=== PATIENT | male | born 1950 | race Asian ===

== ENCOUNTER 2019-12-20 16:54 | Inpatient (IN) | payer BC ==
--- NOTE | 2019-12-20 17:31 | CT ---
Exam: Head CT without contrast HISTORY: Left-sided weakness, improved. COMPARISON: none FINDINGS: Hemorrhage: No intraparenchymal hemorrhage or extra-axial hematoma. Brain parenchyma: Cortical soler-white matter differentiation is preserved. No mass effect or midline shift. Basilar cisterns are patent. Ventricular system: Ventricles and sulci are patent and symmetric. Calvarium: Intact. Sinuses and mastoid air cells: Adequate aeration. IMPRESSION: No acute intracranial process.
[2019-12-20] MEDS ORDERED: Aspirin Chewable 81 MG TAB ONE (17:52)
[2019-12-20 18:13] LABS: #Eosinphils 0.1 thou/uL (0.0-0.7); #Lymphocytes 1.6 thou/uL (1.20-3.40); #Monocytes 0.6 thou/uL (0.11-0.59); #Neutrophils 4.4 thou/uL (1.40-6.50); %Basophils 0.3 % (0.0-1.0); %Eosinophils 1.7 % (0.0-10.0); %Lymphocytes 23.6 % (21.0-51.0); %Monocytes 8.2 % (0.0-10.0); %Neutrophils 66.2 % (42.0-75.0); Hemoglobin 14.5 g/dL (14.0-18.0); Mean Corpuscular Hemoglobin 30.6 pg (27.0-31.0); Mean Corpuscular Volume 95.6 fL (78.0-98.0); Mean Platelet Volume 7.7 fL (7.4-10.4); Platelet Count 203 thou/uL (130-400); RBC Distribution Width 11.8 % (11.5-14.5); Red Blood Cell (RBC) Count 4.75 mill/uL (4.70-6.10); White Blood Cell (WBC) Count 6.7 thou/uL (4.8-10.8)
[2019-12-20 18:26] LABS: Bilirubin Negative (Negative); Blood, Urine Negative (Negative); Clarity Clear (Clear); Glucose, Urine (Dipstick) Normal (Negative); Leukocyte Negative Leu/uL (Negative); Nitrite Negative (Negative); Protein, Urine (Dipstick) 20 mg/dL (Neg-Trace); Urobilinogen Normal mg/dL (Less than 2)
[2019-12-20 19:10] LABS: ALT (SGPT) 23 U/L (8-55); AST (SGOT) 20 U/L (5-34); Albumin 4.1 g/dL (3.4-4.8); Alkaline Phosphatase 81 U/L (40-110); Anion Gap 12 mmol/L (10-20); BUN (Urea Nitrogen) 18 mg/dL (8.4-25.7); Bilirubin, Total 0.5 mg/dL (0.2-1.2); CK (CPK) 142 U/L (30-200); Calc. Creatinine Clearance 0 mL/min (70-130); Carbon Dioxide 25 mmol/L (23-31); Chloride 107 mmol/L (98-107); Estimated GFR-MDRD 55; Globulin 2.7 g/dL (2.4-3.5); Glucose 94 mg/dL (80-115); Protein, Total 6.8 g/dL (5.8-8.1); Sodium 140 mmol/L (136-145)
[2019-12-20 23:06] VITALS: BMI 27.6
--- NOTE | 2019-12-21 00:05 | HP ---
TIME OF ASSESSMENT: 2100 hours. CHIEF COMPLAINT: Left upper and lower extremity weakness/numbness. HISTORY OF PRESENT ILLNESS: Mr. Contreras is a 69-year-old gentleman with a previous history of CVA in 2015, confirmed on MRI, who presents with sudden onset of left hand numbness and weakness that progressed to involve his entire left arm as well as his left leg. The patient states this may have started at approximately 2 or 3:00 p.m. He states it is almost fully resolved at this present time. On arrival to the emergency department, he was noted to have some slight weakness in the left upper extremity and abnormal [id number] movement. The patient reports that immediately prior to these symptoms, he felt a "shaking in my brain." When asked if he felt dizzy or lightheaded, the patient stated "maybe." Denies any ataxic gait, but states it was difficult to walk due to the weakness in his leg. Denies any speech changes or vision disturbances. Did not experience any headache. All other review of systems are negative. ED COURSE: In the emergency department, he underwent an EKG that showed normal sinus rhythm with a heart rate of 63. He was given 325 mg of aspirin and underwent a CT of the head that was unremarkable. He had laboratory studies done, which were unremarkable as well. His full blood count was normal. Potassium is 4.1, BUN 18, creatinine 1.30, GFR 55. LFTs unremarkable. Troponin negative. CK 142. The patient also underwent a urinalysis, which was negative. PAST MEDICAL HISTORY: 1. Hyperlipidemia. 2. Hypothyroidism. 3. History of CVA. 4. Kidney stones. PAST SURGICAL HISTORY: 1. Partial lung removal. 2. Kidney stone removal. 3. Cholecystectomy. SOCIAL HISTORY: The patient states he lives with his family. Denies any tobacco use, alcohol consumption, or illicit drug use. ALLERGIES: NO KNOWN DRUG ALLERGIES. CURRENT MEDICATIONS: 1. Amlodipine. 2. Synthroid. 3. Aspirin. 4. Lipitor. PHYSICAL EXAMINATION: GENERAL: The patient appears well developed, well nourished, is in no acute distress. VITAL SIGNS: Heart rate 59, blood pressure 126/70, respiratory rate 16, O2 sat 98% on room air, temp 98. HEENT: Normocephalic and atraumatic. Pupils are equal, round, reactive to light. Sclerae icterus. Extraocular movements intact. Oropharynx is clear. No tongue deviation. NECK: Supple without lymphadenopathy. Full range of motion. LUNGS: Clear to auscultation bilaterally without any wheezes, rales, or rhonchi. CARDIAC: Regular rate and rhythm. ABDOMEN: Soft, nontender, nondistended with bowel sounds present. No guarding or rigidity. No renal angle tenderness. EXTREMITIES: Power 5/5 in both upper and lower extremities. Sensation intact with no numbness or reduced sensation involving the left side. Peripheral pulses present and equal bilaterally. NEUROLOGIC: Alert and oriented x3. Speech appears to be normal. The patient does have heavy accent, but no slurred speech. Facial movements normal. Facial sensation intact. Extraocular movements intact. Peripheral vision intact. Gait is normal. No cerebellar signs. INVESTIGATIONS: As mentioned above. IMPRESSION AND PLAN: Mr. Contreras is a 69-year-old gentleman who is being admitted for management of the followin. Transient ischemic attack workup. The patient with a history of cerebrovascular accident in the past, confirmed on MRI. CT brain negative. We will obtain a CT angiogram of the head and neck, echo, and MRI of the brain. The patient normally on 81 mg of aspirin at home. We will increase this to 325 mg p.o. daily. He is on 40 mg of atorvastatin. Lipid panel. We will recheck with morning labs. Consider increasing to 80 mg. Consultation placed to Neurology. Further recommendations as per Dr. James. 2. Hypertension. Monitor blood pressure. Resume home medications once verified. 3. Hypothyroidism. Check thyroid stimulating hormone. Resume home medications once verified. 4. Gastrointestinal prophylaxis with famotidine. 5. Deep venous thrombosis prophylaxis. The patient is ambulatory at this present time. 6. Code status, full. 7. Surrogate decision maker is his , Lousia Carvalho. 8. Case discussed with attending who agrees with plan of care as described above. Job ID: [id number]
[2019-12-21 05:04] LABS: #Basophils 0.1 thou/uL (0.0-0.2); #Eosinphils 0.2 thou/uL (0.0-0.7); #Lymphocytes 2.7 thou/uL (1.20-3.40); #Monocytes 0.5 thou/uL (0.11-0.59); %Basophils 1.2 % (0.0-1.0); %Eosinophils 2.5 % (0.0-10.0); %Lymphocytes 41.8 % (21.0-51.0); %Monocytes 7.6 % (0.0-10.0); %Neutrophils 46.9 % (42.0-75.0); Hemoglobin 13.8 g/dL (14.0-18.0); Mean Corpuscular HGB CONC 32.9 g/dL (32.0-36.0); Mean Corpuscular Hemoglobin 31.3 pg (27.0-31.0); Mean Corpuscular Volume 95.2 fL (78.0-98.0); Mean Platelet Volume 7.9 fL (7.4-10.4); Platelet Count 218 thou/uL (130-400); RBC Distribution Width 11.8 % (11.5-14.5); White Blood Cell (WBC) Count 6.4 thou/uL (4.8-10.8)
[2019-12-21 05:17] LABS: Anion Gap 12 mmol/L (10-20); BUN (Urea Nitrogen) 16 mg/dL (8.4-25.7); Calc. Creatinine Clearance 69 mL/min (70-130); Calcium 8.6 mg/dL (7.8-10.44); Carbon Dioxide 24 mmol/L (23-31); Cardiac Risk 2.4 (Less than 4.5); Chloride 107 mmol/L (98-107); Cholesterol 100 mg/dl (< 200 Desired); Estimated GFR-MDRD 66; Glucose 87 mg/dL (80-115); HDL Cholesterol 41 mg/dL (>60 Neg Risk); LDL Cholesterol, Calculated 41 mg/dL; Potassium 3.7 mmol/L (3.5-5.1); Sodium 139 mmol/L (136-145); Triglycerides 92 mg/dL (Less than 150)
[2019-12-21] MEDS ORDERED: Levothyroxine Sodium 50 MCG TAB PO SCH (06:00)
[2019-12-21] MEDS ORDERED: Famotidine/PF 20 mg/2ml Vial SLOW IVP SCH (09:00)
[2019-12-21] MEDS ORDERED: Aspirin 325 mg Enteric Coated Tablet PO SCH (09:00)
[2019-12-21] MEDS ORDERED: Famotidine 20 MG TAB PO SCH (09:00)
--- NOTE | 2019-12-21 09:07 | MRI ---
MRI BRAIN WITHOUT CONTRAST: INDICATION: TIA. Assess for stroke versus TIA. Left-sided weakness. COMPARISON: Comparison is made to MRI of brain dated 08/11/2017. FINDINGS: Ventricles have normal size and position. On diffusion weighted sequence, there are 2 small foci of restricted diffusion seen in the right frontal lobe. The more posterior involves the precentral gyru s and would be consistent with left motor deficit. The more anterior is in the subcortical region of frontal lobe. These foci would be within the distribution of the right MCA. No other restricted di ffusion. FLAIR sequence shows mild ischemic change in the basal ganglia which appears chronic. Minimal ischem ic white matter change. No mass or edema. The intracranial internal carotid arteries and proximal cerebral arteries including the middle cerebr al artery show flow voids. Paranasal sinuses and mastoids appear clear. IMPRESSION: A few small foci of restricted diffusion of the right frontal lobe are seen consistent with tiny acut e infarcts. The more posterior foci do involve the precentral gyrus and could result in motor defici t. POS: [facility]
--- NOTE | 2019-12-21 09:26 | CT ---
CTA OF THE HEAD WITH AND WITHOUT IV CONTRAST AND 3-D REFORMATTED IMAGING. CTA OF THE NECK WITH IV CONTRAST AND 3-D REFORMATTED IMAGING. INDICATION: TIA with residual left hand weakness COMPARISON: CT of the brain dated December 20, 2019 and MR the brain dated December 21, 2019 FINDINGS: CTA OF THE HEAD WITH AND WITHOUT CONTRAST: NONCONTRAST CT OF BRAIN: Hemorrhage: None [place]/Infarction: Known small punctate cortically based infarcts involving the right frontal lobe, seen on the recent MR of the brain dated December 21, 2019, are not as well seen on the current CT examination. Midline Shift: None. Hydrocephalus: None. Skull and Extracranial Soft tissues: Normal. CTA OF THE BRAIN: Right ICA: Patent. Right MCA: Patent. Right CHARLEY: Patent. ACOM: Patent. Left ICA: Patent. Left MCA: Patent. Left CHARLEY: Patent. PCOMs: Patent. Vertebral arteries: The right vertebral artery is diminutive. The left vertebral artery is dominant. Basilar Artery: Patent. 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 Incidentals: No abnormal enhancement CTA OF THE NECK WITH CONTRAST: Right CCA: Patent. Right ICA: Patent. Right Subclavian: Patent. Right Vertebral Artery: Diminutive Left CCA: Patent. Left ICA: Patent. Left Subclavian: Patent. Left Vertebral Artery: Dominant Aerodigestive tract: Clear. Parotids/Submandibular/Thyroid glands: Normal. Lymph nodes: No pathologically enlarged lymph nodes. Lung Apices: Clear. Bones: No acute osseous abnormality. Incidentals: There is mild ectasia of the ascending aorta measuring 3.8 cm. There is mild aneurysmal dilatation of the aortic arch measuring 3.1 cm. There is mild ectasia of the descending thoracic aorta measuring 2.9 cm. IMPRESSION: 1. No hemodynamically significant stenosis, occlusion or aneurysmal formation. 2. 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 Mild aneurysmal dilatation of t he aortic arch.
--- NOTE | 2019-12-21 12:08 | PRG ---
DATE OF SERVICE: 12/21/2019 SUBJECTIVE: The patient is seen and examined at bedside. He is feeling good. He regained all his strength he lost yesterday and he does not have much complaints to offer. His appetite is fair. OBJECTIVE: VITAL SIGNS: Blood pressure is 128/77, pulse is , temperature is 97.8, respirations 16, and O2 saturation is 97% on room air. HEENT: His head is atraumatic and normocephalic. Eyes are PERRLA. Sclerae are nonicteric. Oral mucosa is moist. NECK: Supple. LUNGS: Clear. HEART: S1 and S2 normal. No S3. No S4. No any murmur. ABDOMEN: Soft and nontender. Bowel sounds are present. No organomegaly. EXTREMITIES: No clubbing, cyanosis or edema. NEUROLOGICAL: He is alert and oriented x4. There is no any motor or sensory deficits. LABORATORY DATA: Labs showed white count of 6.4, hemoglobin 13.8, hematocrit 41.9, and platelet count 218,000. Chemistry within normal limits. Triglycerides 92, cholesterol 100, LDL 41, and HDL is 41. Third generation TSH is 3.26. DIAGNOSTIC DATA: Brain MRI showed a few small foci of restricted diffusion of the right frontal lobe consistent with tiny acute infarct. CT of the [place] of [place] angio with contrast showed no hemodynamically significant stenosis, occlusion of aneurysmal formation, mild ectasia of the ascending aorta and descending thoracic aorta, and mild aneurysmal dilatation of the aortic arch. IMPRESSION: 1. Transient ischemic attack/cerebrovascular accident, resolved. 2. Hypertension. 3. Hypothyroidism. 4. 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 5. 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 PLAN: Continue aspirin 325 mg once a day. Cut back on atorvastatin to 20 mg at bedtime from 40. Echocardiogram is still pending and Neurology consultation is still pending. Job ID: [id number]
[2019-12-21] MEDS ORDERED: Iopamidol 370 76% 100 ML VIAL ONE (15:56)
[2019-12-21 16:15] VITALS: BP 128/72; TEMP 98.6
[2019-12-21] MEDS ORDERED: Atorvastatin Calcium 40 MG TAB PO SCH (21:00)
[2019-12-21] MEDS ORDERED: Atorvastatin Calcium 20 MG TAB PO SCH (21:00)
[2019-12-21] MEDS ORDERED: Amlodipine 5 MG TAB PO SCH (21:00)
--- NOTE | 2019-12-21 21:02 | CON ---
DATE OF CONSULTATION: 12/21/2019 CONSULTING PHYSICIAN: Hospitalist Service. IMPRESSION: 1. Recurrent stroke in the right anterior parietal region without visible etiology. 2. Aspirin failure. PLAN: 1. Add Plavix 75 mg per day. 2. Refer to outpatient cardiology for EKG monitoring to rule out intermittent atrial fibrillation. 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 He was seen 4 years ago for a right frontal stroke that resulted in some transient left hemiparesis. He was started on aspirin and a statin. He has been very diligent about exercising regularly. He has some hypertension, which has been managed as well. He was sitting at his desk when he suddenly felt something unusual. He started developing left-sided weakness again. Fortunately, his symptoms have steadily improved. MRI confirmed a right frontal area of infarct that was new. His lipid ratio was 2.4. His CT angiogram did not show any evidence of stenosis. The remainder of his lab work was unremarkable. His EKG showed a normal sinus rhythm. His blood pressure is quite good. His echocardiogram is pending. PAST MEDICAL HISTORY: Hypertension, hypothyroidism, and prior stroke. ALLERGIES: NONE. SOCIAL HISTORY: No tobacco. FAMILY HISTORY: Noncontributory. REVIEW OF SYSTEMS: Ten-system review of systems is otherwise negative. MEDICATION LIST: Reviewed. PHYSICAL EXAMINATION: GENERAL: He is a healthy-appearing middle-aged man, in no acute distress. VITAL SIGNS: Have been stable. He is afebrile. HEENT: Pupils equal and reactive. Conjunctivae clear. Oropharynx clear. NECK: Supple. EXTREMITIES: No cyanosis or edema. NEUROLOGIC: He is alert and appropriate. His speech is fluent and clear. There is no facial asymmetry. There is no lateralized weakness or numbness. No abnormal movements are seen. Gait was not tested, but he reports that he walked without any difficulty this afternoon. SUMMARY: This is a 69-year-old [place] male with recurrent stroke given his lack of risk factors beyond hypertension, I would rule out intermittent atrial fibrillation. We can add Plavix for the time being. If atrial fibrillation is confirmed, he can be converted to an anticoagulant. Job ID: [id number]
--- NOTE | 2019-12-22 08:06 | DIS ---
DATE OF ADMISSION: 12/20/2019 DATE OF DISCHARGE: 12/21/2019 FINAL DIAGNOSES AT THE TIME OF DISCHARGE: 1. Acute cerebrovascular accident. 2. Hypertension. 3. Hypothyroidism. 4. 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 5. 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 6. History of cerebrovascular accident. CONSULTANTS: Dr. James, Neurology Service. IMAGES: Brain CT with no acute intracranial process. CT [place] [facility] [place] Angiogram with contrast. 1. No hemodynamically significant stenosis, occlusion, or aneurysmal formation. 2. 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 Echocardiogram showed LVEF estimated at 60% to 65% with grade 1 of diastolic dysfunction, mild concentric left ventricular hypertrophy. Mild mitral regurgitation, mild aortic regurgitation, mild tricuspid regurgitation, and mild pulmonic regurgitation, and review specialist was not able to rule out small PFO, and KATHARINE was recommended with agitated saline study. MRI of the brain showed few small foci of restricted diffusion of the right frontal lobe consistent with tiny acute infarct. 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 Apparently, he has a history of previous CVA in 2015, confirmed with MRI with the same distribution He denied any speech changes or vision disturbances. He did not experience any headache. In the emergency room, he underwent EKG, which showed normal sinus rhythm with heart rate of 63. He was given 325 mg of aspirin and underwent CT of the head, which was unremarkable. His blood count was normal. Potassium 4.1, BUN 18, creatinine 1.3, GFR 55. LFTs were unremarkable. Troponin was negative. CK of 142. UA was negative. The patient got admitted to the Stroke Unit, and the dose of aspirin was increased to 325 from his home regimen of 81. He was continued on atorvastatin 40 mg. Lipid panel was requested. The patient was seen by Dr. James for neurology evaluation. In the meantime, he underwent MRI of the brain, which showed several foci of restricted diffusion of the right frontal lobe, which was consistent with tiny acute infarct. Neurologist recommended Plavix along with baby aspirin 81 mg daily. Also, he recommended to follow up with review specialist for possible additional cardiac evaluation. In the meantime, his echocardiogram came back with finding of possible small PFO with mild concentric left ventricular hypertrophy and grade 1 diastolic dysfunction, normal LVEF at 60% to 65%. Scabbler, Dr. Cannon, who read this echo, recommended to do KATHARINE with agitated saline study. The patient is doing well. Blood pressure is 128/72, pulse is 68, temperature is 98.6, respiratory rate is 12, and O2 saturation 95% on room air. His physical examination is unremarkable. He is able to ambulate during the whole hospitalization. His was present with him. His full function came back. Mental function is normal. He is discharged home in good condition. FOLLOWUP: He will follow up with his primary care physician, Dr. Shan Thomson in few days. Also, he will follow up with Dr. Cannon. He will call his office to set up outpatient KATHARINE. MEDICATIONS: At the time of discharge; 1. Atorvastatin 20 mg q.h.s. This was decreased because his total cholesterol was low as 100. 2. We will continue clopidogrel 75 mg once a day. 3. Amlodipine 5 mg q.h.s. 4. Aspirin 81 mg once a day. 5. Levothyroxine, which is Synthroid 50 mcg once a day. DIET: He will stay on low-salt diet. ACTIVITIES: As tolerated, and also, we recommended him to have follow up on his CT of the chest findings, which showed an ectasia of the ascending and descending aorta and mild aneurysmal dilatation of the aortic arch. He understands all our recommendation, and he promises that he will follow up on that. Job ID: [id number]
[2019-12-22] MEDS ORDERED: Clopidogrel Bisulfate 75 MG TAB PO SCH (09:00)
== END 2019-12-21 17:53 | disposition home or self-care (01) | DRG 65 ==
LOC: ERS 16:54 → OBSVTOIN 21:00 → 2SE 21:00
PROVIDERS: ADMIT Emergency Medicine; ATTEND Emergency Medicine
PROC: B020ZZZ Computerized Tomography (CT Scan) of Brain (ICD-10-PCS; principal; 2019-12-20)
PROC: B030ZZZ Magnetic Resonance Imaging (MRI) of Brain (ICD-10-PCS; 2019-12-21)
DX: I63.50 Cerebral infarction due to unspecified occlusion or stenosis of unspecified cerebral artery (principal); G81.94 Hemiplegia, unspecified affecting left nondominant side; E78.5 Hyperlipidemia, unspecified; E03.9 Hypothyroidism, unspecified; R29.701 NIHSS score 1; I71.2 Thoracic aortic aneurysm, without rupture; R40.2412 Glasgow coma scale score 13-15, at arrival to emergency department; I48.91 Unspecified atrial fibrillation; Z87.442 Personal history of urinary calculi; Z90.49 Acquired absence of other specified parts of digestive tract; Z79.890 Hormone replacement therapy; Z79.82 Long term (current) use of aspirin; Z79.899 Other long term (current) drug therapy; I10 Essential (primary) hypertension
CPT/HCPCS: 36415; 70450; 70496; 70498; 70551; 80048; 80053; 80061; 81003; 82550; 84443; 84484; 85025; 93005; 93306; Q9967

== ENCOUNTER 2020-01-12 07:28 | Outpatient (CLI) | payer BC ==
[2020-01-12 09:56] LABS: #Eosinphils 0.1 thou/uL (0.0-0.7); #Lymphocytes 2.4 thou/uL (1.20-3.40); #Monocytes 0.4 thou/uL (0.11-0.59); %Basophils 0.2 % (0.0-1.0); %Eosinophils 2.4 % (0.0-10.0); %Lymphocytes 39.6 % (21.0-51.0); %Monocytes 7.1 % (0.0-10.0); %Neutrophils 50.7 % (42.0-75.0); Hemoglobin 14.5 g/dL (14.0-18.0); Mean Corpuscular HGB CONC 34.3 g/dL (32.0-36.0); Mean Corpuscular Hemoglobin 33.3 pg (27.0-31.0); Mean Corpuscular Volume 96.8 fL (78.0-98.0); Mean Platelet Volume 7.1 fL (7.4-10.4); Platelet Count 226 thou/uL (130-400); RBC Distribution Width 11.8 % (11.5-14.5); Red Blood Cell (RBC) Count 4.36 mill/uL (4.70-6.10)
[2020-01-12 10:02] LABS: INR-International Normal Ratio 0.9; PTT 37.1 SEC (22.9-36.1); Prothrombin Time 12.4 SEC (12.0-14.7)
[2020-01-12 10:19] LABS: Anion Gap 11 mmol/L (10-20); BUN (Urea Nitrogen) 21 mg/dL (8.4-25.7); Calc. Creatinine Clearance 0 mL/min (70-130); Calcium 9.5 mg/dL (7.8-10.44); Carbon Dioxide 28 mmol/L (23-31); Chloride 107 mmol/L (98-107); Estimated GFR-MDRD 56; Glucose 95 mg/dL (80-115); Potassium 4.8 mmol/L (3.5-5.1); Sodium 141 mmol/L (136-145)
== END 2020-01-12 07:29 | disposition home or self-care (01) ==
LOC: LABBT 07:28
PROVIDERS: ATTEND Internal Medicine Cardiovascular Disease
DX: Z01.812 Encounter for preprocedural laboratory examination (principal); T84.84XD Pain due to internal orthopedic prosthetic devices, implants and grafts, subsequent encounter
CPT/HCPCS: 80048; 85025; 85610; 85730

== ENCOUNTER 2020-01-15 10:16 | Day surgery (SDC) | payer BC ==
[2020-01-12 09:16] VITALS: BMI 27.3
[2020-01-15] MEDS ORDERED: PROPOFOL 20 ML ONE (15:02)
[2020-01-15] MEDS ORDERED: Lidocaine 1% PF 5 ML VIAL ONE (15:02)
--- NOTE | 2020-01-17 18:24 | ECHO ---
DATE OF SERVICE: 01/17/20 PREPROCEDURE DIAGNOSIS: Multiple TIAs. PROCEDURES PERFORMED: Transesophageal echo. The Anesthesiology department provided with sedation for the patient. Please see their notes for det ails. After adequate sedation was achieved, transesophageal probe was inserted into the mouth and into the esophagus. Multiplanar views were obtained. FINDINGS: Left ventricle is normal size, normal wall thickness. Systolic function appears to be normal. Estima yasmin EF at 55-60% with no regional wall motion abnormalities. Left atrium is mildly dilated with no masses or thrombus. Left atrial appendage is a small appendage with no mass or thrombus. Spontaneous echo contrast. Right atrium is normal sized. No mass or thrombus. The right ventricle is structurally normal with normal systolic function. The interatrial septum has patent foramen ovale. This is confirmed with color Doppler as well as agit ated saline study with back and forth flow, left to right and also right to left shunting. Aortic valve is structurally normal. There is three cusps. No stenosis. There is mild aortic insuffic iency. Mitral valve is structurally normal. There is mild MR. No stenosis. Tricuspid valve is structurally normal. There is mild TR. Pulmonary valve is structurally normal. There is mild to moderate PI. No stenosis. Thoracic aorta has grade II/ atherosclerotic disease. CONCLUSIONS: 1. Normal LV systolic function, EF at 55-60%. 2. Mild AI. 3. Mild MR. 4. Mild TR. 5. Mild to moderate PI. 6. Agitated saline study and color Doppler confirm the presence of a patent foramen ovale with both left to right and right to left shunting.
== END 2020-01-15 16:25 | disposition home or self-care (01) ==
LOC: CCL 10:16
PROVIDERS: ATTEND Internal Medicine Cardiovascular Disease
PROC: B24BZZ4 Ultrasonography of Heart with Aorta, Transesophageal (ICD-10-PCS; principal; 2020-01-15)
DX: Q21.1 Atrial septal defect (principal); I70.0 Atherosclerosis of aorta; I35.1 Nonrheumatic aortic (valve) insufficiency; I37.1 Nonrheumatic pulmonary valve insufficiency; I08.1 Rheumatic disorders of both mitral and tricuspid valves; I10 Essential (primary) hypertension; E78.1 Pure hyperglyceridemia; E03.9 Hypothyroidism, unspecified; Z86.73 Personal history of transient ischemic attack (TIA), and cerebral infarction without residual deficits; Z79.02 Long term (current) use of antithrombotics/antiplatelets; Z79.82 Long term (current) use of aspirin; Z79.899 Other long term (current) drug therapy
CPT/HCPCS: 93312; J2001; J2704